=== PATIENT | male | born 1940 | race Caucasian/White ===

== ENCOUNTER 2022-11-11 10:47 | Emergency (ER) | payer OTHER ==
[~2022-11-11] VITALS: Ht 170.2 cm; Wt 87.5 kg
[~2022-11-11 10:47] MED LIST: ASPI-862 PO; CYAN100010 PO; DOCU-144 PO; FLO44 INH; HYDR-4497 PO; LIP10 PO; NOR10 PO; OMEP20TA20 PO; TAMS-11 PO; VITD2000 PO; VITD400 PO; [UNRECOGNIZED DRUG - OTHER]
[2022-11-11 11:12] VITALS: BP_SYST 136
--- NOTE | 2022-11-11 11:15 | NUR ---
Patient triaged and placed in waiting room. VSS and patient appears in no acute distress at this time. Accompanied by DAUGHTER, awaiting available bed, and MD notified of need for MSE.
--- NOTE | 2022-11-11 11:20 | NUR ---
Pt brought by daughter, A&Ox4, pt presents to ER with lower abdominal pain nausea and constipation, skin pink and warm, cap refill <3, VSS,will cont to monitor.
[2022-11-11 11:33] LABS: BILIRUBIN,URINE NEGATIVE (NEGATIVE); CLARITY/URINE CLEAR (CLEAR); COLOR,URINE YELLOW (YELLOW); GLUCOSE,URINE NEGATIVE (NEGATIVE); KETONES,URINE NEGATIVE (NEGATIVE); LEUKOCYTE ESTERASE ,URINE NEGATIVE (NEGATIVE); NITRITE, URINE NEGATIVE (NEGATIVE); PH,URINE 7.5 (5.0-8.0); PROTEIN URINE NEGATIVE (NEGATIVE)
[2022-11-11 11:40] LABS: BLOOD, URINE TRACE (NEGATIVE)
[2022-11-11 11:57] LABS: BACTERIA,URINE None Seen /HPF (None Seen); RBC,URINE 0-3 /HPF (0-3); WBC,URINE NONE SEEN /HPF (0-3)
[2022-11-11 12:00] LABS: BASOPHILS % (AUTO) 0.3 % (0.0-2.0); EOSINOPHILS # (AUTO) 0.1 K/uL (0.0-0.4); EOSINOPHILS % (AUTO) 2.2 % (0.0-4.0); HEMATOCRIT 41.3 % (36-54); HEMOGLOBIN 13.8 g/dL (14.0-18.0); LYMPHOCYTES # (AUTO) 1.1 K/uL (1.0-5.5); MEAN CORPUSCULAR HEMOGLOBIN 32 pg (27-31); MEAN CORPUSCULAR HGB CONC 33 % (32-36); MEAN CORPUSCULAR VOLUME 96 fL (79.0-98.0); MONOCYTES # (AUTO) 0.4 K/uL (0.0-1.0); MONOCYTES % (AUTO) 10.4 % (1.7-9.3); NEUTROPHILS # (AUTO) 2.7 K/uL (1.8-7.7); NEUTROPHILS % (AUTO) 62.1 % (40.0-70.0); PLATELET COUNT (AUTO) 213 K/uL (130-430); RED BLOOD CELL COUNT(AUTO) 4.32 MIL/uL (4.2-6.2); WHITE BLOOD COUNT (AUTO) 4.3 K/uL (4.8-10.8)
[2022-11-11 12:03] LABS: ANION GAP 8 (5-15); CALCIUM 9.2 mg/dL (8.4-11.0); CHLORIDE 101 mmol/L (98-107); CREATININE 1.28 mg/dL (0.55-1.30); GLUCOSE 142 mg/dL (70-99); UREA NITROGEN, BLOOD 23 mg/dL (8-21)
[2022-11-11 12:08] LABS: ALANINE AMINOTRANSFERASE 40 U/L (12-78); ALBUMIN 3.2 g/dL (3.4-4.8); ASPARTATE AMINOTRANSFERASE 34 U/L (10-37); LIPASE 24 U/L (73-393); TOTAL BILIRUBIN 0.4 mg/dL (0.0-1.0)
--- NOTE | 2022-11-11 12:42 | NUR ---
MD DR ABARCA AT BEDSIDE
[2022-11-11] MEDS ORDERED: ONDA8TAB60 PO (13:42)
[2022-11-11] MEDS ORDERED: IBUP-1971 PO (13:42)
[2022-11-11] MEDS ORDERED: OMEP40CA20 PO (13:42)
[2022-11-11] MEDS ORDERED: HYDR-3917 PO (13:42)
[2022-11-11 13:52] VITALS: BP_SYST 135
--- NOTE | 2022-11-11 13:55 | NUR ---
Patient given written and verbal discharge instructions and verbalizes understanding. ER MD DR ABARCA discussed with patient the results and treatment provided. Patient in stable condition. ID arm band removed. Rx of NORCO, MOTRIN, OMEPERZOLE given. Patient educated on pain management and to follow up with PMD. Pain Scale 4/10. Opportunity for questions provided and answered. Medication side effect fact sheet provided.
== END 2022-11-11 13:55 | disposition home or self-care (01) ==
LOC: SED 10:47
DX: R10.13 Epigastric pain (principal); I10 Essential (primary) hypertension; Z88.5 Allergy status to narcotic agent; Z79.899 Other long term (current) drug therapy
CPT/HCPCS: 36415; 76376; 80053; 81000; 83690; 85025; 99284